=== PATIENT | female | born 1945 | race Caucasian/White ===

== ENCOUNTER 2024-06-02 12:27 | Emergency (ER) | payer MEDICARE, SELFPAY ==
[2024-06-02 12:42] VITALS: BP 134/82; PULSE 79; RESP 14; TEMP 36.6; O2SAT 96; BMI 36.1
--- NOTE | 2024-06-02 13:17 | ED.GENADULT ---
HPI - General Adult General Chief complaint: Abdominal Pain Stated complaint: Likely diverticulitis Time Seen by Provider: 06/02/24 12:42 History of Present Illness HPI narrative: This 78-year-old female was at urgent care earlier this week and had a CT scan which diagnosed diverticulitis. She has been taking Augmentin and states that the abdominal pain that characterize diverticulitis is completely gone but now in the last day or so she has developed some crampy pain with some diarrhea. She states that she felt much better initially after starting this medicine. She arrives here with normal vital signs. Related Data Home Medications ?Medication ?Instructions ?Recorded ?Confirmed amlodipine 5 mg tablet 5 mg PO DAILY 06/02/24 06/02/24 amoxicillin 875 mg-potassium 1 tab PO BID 06/02/24 06/02/24 clavulanate 125 mg tablet aspirin 81 mg capsule 81 mg PO DAILY 06/02/24 06/02/24 calcium carb-ergocalciferol (vit 1 tab PO DAILY 06/02/24 06/02/24 D2) 600 mg calcium-200 unit tablet ferrous sulfate 325 mg (65 mg 325 mg PO DAILY 06/02/24 06/02/24 iron) tablet (Feosol) furosemide 20 mg tablet 20 mg PO DAILY 06/02/24 06/02/24 ketoconazole 2 % shampoo 1 applic topical PRN 06/02/24 losartan 25 mg tablet 25 mg PO DAILY 06/02/24 06/02/24 pantoprazole 20 mg tablet,delayed 20 mg PO DAILY 06/02/24 06/02/24 release Allergies Allergy/AdvReac Type Severity Reaction Status Date / Time venom-wasp Allergy Severe Anaphylaxis Verified 06/02/24 12:41 amiodarone Allergy Unknown Dizziness Verified 06/02/24 12:41 clindamycin Allergy Unknown Verified 06/02/24 12:41 Sulfa (Sulfonamide Allergy Unknown Verified 06/02/24 12:41 Antibiotics) zoster vaccine live Allergy Unknown Verified 06/02/24 12:41 procaine Allergy Anaphylaxis Verified 06/02/24 12:41 levofloxacin (From Levaquin) AdvReac Verified 06/02/24 12:41 ondansetron AdvReac Dizziness Verified 06/02/24 12:41 Review of Systems Status of ROS: Reports: 10 or more systems reviewed and unremarkable except as noted in History and below Narrative: Constitutional: No fevers, no weight gain or loss. Eyes: No discharge. No vision changes. HENT: No congestion, no sore throat, no ear pain. Cardiovascular: No chest pain, no palpitations. Respiratory: No shortness of breath, no wheezes, no cough. Gastrointestinal: Some episodes of crampy abdominal pain and mild diarrhea. Genitourinary: No dysuria, no hematuria. Musculoskeletal: Normal range of motion. Skin: No rashes, no pruritis. Neurological: No dizziness, weakness, sensory change, speech change. Endo/Heme/Allergies: No bruising or bleeding. No polydipsia. Pysch: no suicidality, no anxiety, no insomnia. All other systems reviewed and are negative. PFSH PFS Social History Smoking Status: Never smoker How often do you have a drink containing alcohol: never AUDIT-C Alcohol total score: 0 Non-prescribed substance use: denies use Exam Narrative: Exam Narrative: Constitutional: Well-developed, well-nourished, no acute distress. HEENT: Normocephalic, atraumatic. Neck: Normal range of motion. Nontender. Supple. Heart: Regular. No murmurs. Normal rate. Intact distal pulses. Lungs: Clear to auscultation. No chest discomfort. No wheezes, rhonchi, or rales. Abdomen: Normal bowel sounds. Nontender. No rebound tenderness. Genitalia: Deferred. Back: No midline tenderness. Normal range of motion. Extremities: Normal range of motion. No injury. Skin: Intact. No rash. Warm. No erythema or pallor. Neurologic: No altered sensation. No weakness. Alert and oriented. Psychiatric: No suicidality. No anxiety or depression. No insomnia. Nursing notes and vitals signs are reviewed. Const: Vital Signs, click to edit/add: Vital Signs - 24 hr 06/02/24 12:42 Temperature 97.8 F Pulse Rate [Pulse Oximeter] 79 Respiratory Rate 14 Blood Pressure [Ri ght Upper Arm] 134/82 Pulse Oximetry 96 Oxygen Delivery Me thod Room Air Course Vital Signs Vital signs: Initial Vital Signs Temperature 97.8 F 06/02/24 12:42 Temperature Source Temporal Artery Scan 06/02/24 12:42 Pulse Rate 79 06/02/24 12:42 Pulse Rhythm Regular 06/02/24 12:42 Respiratory Rate 14 06/02/24 12:42 Blood Pressure 134/82 06/02/24 12:42 Blood Pressure Mean 99 06/02/24 12:42 Blood Pressure Position Sitting 06/02/24 12:42 Pulse Oximetry 96 06/02/24 12:42 Oxygen Delivery Method Room Air 06/02/24 12:42 Vital Signs Temperature 97.8 F 06/02/24 12:42 Pulse Rate 79 06/02/24 12:42 Respiratory Rate 14 06/02/24 12:42 Blood Pressure 134/82 06/02/24 12:42 Pulse Oximetry 96 06/02/24 12:42 Oxygen Delivery Method Room Air 06/02/24 12:42 Temperature 97.8 F 06/02/24 12:42 Pulse Rate 79 06/02/24 12:42 Respiratory Rate 14 06/02/24 12:42 Blood Pressure 134/82 06/02/24 12:42 Pulse Oximetry 96 06/02/24 12:42 Oxygen Delivery Method Room Air 06/02/24 12:42 Medical Decision Making MDM Narrative Medical decision making narrative: This patient has completed several days of Augmentin therapy to treat diverticulitis. Her symptoms completely resolved after few days but now she has developed some crampy pains and softer stools with mild diarrhea at times. Her exam is completely normal. Vital signs also are in normal range. It seems that her symptoms are more likely related to adverse effects of Augmentin which typify this scenario of her presentation. I did discuss repeating lab and imaging studies with her but indicated reassurance with normal exam and vital signs. I advised her to discontinue the Augmentin as studies are showing also now that antibiotic treatment for uncomplicated diverticulitis is not clearly beneficial. It seems that she did benefit but now is experiencing some adverse effects of the medicine. She was satisfied with this results and will proceed accordingly. Discharge Plan Discharge Clinical Impression: Diverticulitis Patient Disposition: Home, Self-Care Condition: Stable Additional Instructions: Discontinue Augmentin. Use [id number] medicines as needed and directed. Follow up with MD return if worsening. Prescriptions: No Action amlodipine 5 mg tablet 5 mg PO DAILY amoxicillin-pot clavulanate 875-125 mg tablet 1 tab PO BID aspirin 81 mg capsule 81 mg PO DAILY calcium carbonate-vitamin D2 600 mg calcium- 200 unit tablet 1 tab PO DAILY ferrous sulfate [Feosol] 325 mg (65 mg iron) tablet 325 mg PO DAILY furosemide 20 mg tablet 20 mg PO DAILY ketoconazole 2 % shampoo 1 applic topical PRN losartan 25 mg tablet 25 mg PO DAILY pantoprazole 20 mg tablet,delayed release (DR/EC) 20 mg PO DAILY Stand Alone Forms: [facility] Instructions
--- OUTSIDE RECORDS SUMMARY | 2024-06-02 13:27 | XMS_ITS | Clinical Summary ---
Author Organization [facility] Address [address] [place] [address] Care Team Providers Care Awake Overnight Monitor Name Role Phone Found, No Pcp MD Primary Care Provider Unavailab le Source Comments You are receiving this document as you are listed as the primary care provider,follow-up provider, or the patient has been referred to you for consultation.This is in compliance with the Medicare and[facility] E[facility] Incentive [facility],which states Providers who transition their patient to another setting of careor provider of care or refers their patient to another provider of care shouldprovide summary care record for each transition of care or referral. Libox Allergies Active Allergy Reactions Criticality Noted Date Comments Procaine 08/14/2008 PN: LW Reaction: Unknown Reaction Sulfa Antibiotics 08/12/2008 PN: LW Reaction: Rash, Generalized Medications DRUG NOT IN COMPUTER LW Comment:Vitamin E 400units 9 Active DRUG NOT IN COMPUTER LW Comment:Multivit marin 9 Active DRUG NOT IN COMPUTER LW Comment:Holabird 3 Fish oil 9 Active ferrous sulfate 325 (65 FE) MG tablet Take 1 tablet by mouth daily (every 24 hours). LW Addl Instr:Indicated for: Iron Deficiency Anemia 0 Active HYDROcodone-joi taminophen (NORCO) 5-325 MG tablet Take 1 Tab by mouth every 6 hours as needed. 20 Tab 0 6 Active Additional Information Patient not taking.Reported on 12/27/2019 predniSONE (DELTASONE) 50 MG tablet Take 1 Tab by mouth daily. 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 Overview (11/24/2016): LW Modifier: large with miguel angel's lesions ; Hernia Hiatal Iron deficiency anemia 03/26/2010 Overview (11/24/2016): Anemia Iron Deficiency Social History Tobacco Use Types Packs/Day Years Used Date Smoking Tobacco: Never Comments Unknown Sex and Gender Information Value Date Recorded Sex Assigned at Not on file Legal Sex Female 1:05 AM CDT Gender Identity Not on file Sexual Orientation Not on file Last Filed Vital Signs Vital Sign Reading Time Taken Comments Blood Pressure 142/85 12/27/2019 5:54 PM CDT Pulse 83 12/27/2019 5:53 PM CDT Temperature 36.9 C (98.5 F) 12/27/2019 5:53 PM CDT Respiratory Rate 18 12/27/2019 5:53 PM CDT Oxygen Saturation 98% 12/27/2019 5:53 PM CDT Inhaled Oxygen Concentration - - Weight 83 kg (183 lb) 12/27/2019 5:53 PM CDT Height 154.9 cm (5' 1) 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 Plan of Treatment Health Maintenance Due Date Last Done Comments Hep C Screening (Preventive Services) 1945 Zoster/Shingles (1 of 2) 09/18/1995 Dexa 2010 DTaP/Tdap/Td (1 - Tdap) 07/10/2014 07/09/2014 RSV (1 - 1-dose 75+ series) 2020 COVID-19 Vaccine (3 - 2023-2 5 season) 2023 06/14/2020, 05/24/2020 Influenza (#1) 2023 Medicare Annual Wellness Visit 04/04/2024 Pneumococcal 50+ Yrs Completed 12/03/2019, 07/09/2014 HepA Aged Out No longer eligi ble based on patient's age to complete this topic HepB Aged Out No longer eligi ble based on patient's age to complete this topic Hib Aged Out No longer eligi ble based on patient's age to complete this topic IPV (Polio) Aged Out No longer eligi ble based on patient's age to complete this topic MCV4 Aged Out No longer eligi ble based on patient's age to complete this topic Meningococcal B Aged Out No longer el igible based on patient's age to complete this topic Insurance [facility] MEDICARE Care Teams Awake Overnight Monitor Relationship Specialty Start Date End Date Found, No Pcp, [id number] [place] [address] PCP - General 08/11/17
--- OUTSIDE RECORDS SUMMARY | 2024-06-02 13:27 | XMS_ITS | Clinical Summary ---
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 Also on Eliquis. Clindamycin 08/18/2018 Other reaction(s): *Unknown - Pt Doesn't Remember All mycins Levofloxacin 05/06/2014 Ondansetron 12/03/2019 Other reaction(s): Dizziness Procaine Anaphylaxis High 08/14/2008 PN: LW Reaction: Unknown Reaction novacaine Sulfa Antibiotics 05/06/2014 Wasp Venom Protein Anaphylaxis High 04/06/2011 [place]et wasp sting Medications multivitamin, therapeutic (THERA-VIT) TABS Take 1 tablet by mouth daily Active albuterol (PROAIR HFA/PROVENTIL HFA/VENTOLIN HFA) 108 (90 Base) MCG/ACT inhaler Inhale 2 puffs into the lungs every 6 hours as needed for shortness of breath / dyspnea or wheezing 8 g 1 Active Social History Tobacco Use Types Packs/Day Years Used Date Smoking Tobacco: Never Assessed Adolescent Education Answer Date Record ed Getting School Help Needed Not on file 01/02 Comments Unknown Sex and Gender Information Value Date Recorded Sex Assigned at Not on file 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 Gender Identity Not on file Sexual Orientation Not on file Last Filed Vital Signs Vital Sign Reading Time Taken Comments Blood Pressure 150/86 08/03/2020 12:00 PM CDT Pulse 57 08/03/2020 1:00 PM CDT Temperature 36.4 C (97.5 F) 08/03/2020 9:56 AM CDT Respiratory Rate 18 08/03/2020 12:30 PM CDT Oxygen Saturation 92% 08/03/2020 1:15 PM CDT Inhaled Oxygen Concentration - - Weight 87 kg (191 lb 12.8 oz) 08/03/2020 9:56 AM CDT Height 152.4 cm (5') 08/03/2020 9:56 AM CDT Body Mass Index 37.46 08/03/2020 9:56 AM CDT Plan of Treatment Not on file Insurance [employer] MEDICARE Care Teams Edge Banding Machine Offbearer Relationship Specialty Start Date End Date [facility], [facility] [address] [place] [address] PCP - General 05/06/14
--- OUTSIDE RECORDS SUMMARY | 2024-06-02 13:27 | XMS_ITS | Clinical Summary ---
Author Organization [facility] Address [address] [place] [id number] Care Team Providers Care Abrading Machine Tender Name Role Phone Ken Land MD Unavailable Zuri Sanchez MD Primary Care Provider [phone] Allergies Active Allergy Reactions Criticality Noted Date Comments Amiodarone Dizziness High 06/11/2019 Clindamycin *Unknown - Pt Doesn' t Remember 08/18/2018 All mycins Flu Vac 2015 (65 Up)-Mf59c(Pf) *Unknown 06/22/2022 Levofloxacin *None-Radiology Only 04/06/2011 Has side effects on the medication Procaine Anaphylaxis High 04/06/2011 novacaine Sulfa (Sulfonamide Antibiotics) *Unknown - Pt Doesn't Remember 02/29/2012 Venom-Wasp Anaphylaxis High 04/06/2011 Yellow Jacket wasp sting Ondansetron Dizziness 12/03/2019 Zoster Vaccine Live *Unknown 06/22/2022 Medications ascorbic acid (VITAMIN C) 1,000 mg tablet Take 1 tablet by mouth once daily. 0 04/06/19 12 Active MAGNESIUM HYDROXIDE (MAGNESIA ORAL) Take 1 tablet by mouth once daily. Unknown dose Active ferrous sulfate, 65 mg elemental, tablet Take 1 Tab by mouth once daily. 03/20/20 10 Active APPLE CIDER VINEGAR ORAL Take 450 mg by mouth once daily. Active aspirin (ECOTRIN) 81 mg enteric coated tabletIndication s:PAF (paroxysmal atrial fibrillation) (HC) Take 1 Tablet (81 mg) by mouth once daily with a meal. 1 Tablet 08/13/19 21 Active COQ10, UBIQUINOL, ORAL Take by mouth once daily if needed. Patient reports taking small amount of liquid formulation (half medicine cup) daily Active acetaminophen (TYLENOL EXTRA STRGTH) 500 mg tablet Take 500 mg by mouth every 6 hours if needed. Max acetaminophen dose: 4000mg in 24 hrs. Active calcium with vitamin D3 (calcium 500 mg-vitamin d 200 units) tablet Take 1 Tablet by mouth once daily with a meal. Active Blood Pressure Monitor KitIndications:H TN (hypertension) Frequency of testing: twice daily 1 Each 09/25/19 23 Active furosemide (LASIX) 20 mg tabletIndication s:HTN (hypertension) Take 1 Tablet (20 mg) by mouth once every other day. taking 1 tablet every other day 45 Tablet 1 11/10/19 23 Active Additional Information Patient taking differently:20 mg Oral EVERY OTHER DAY, taking 1 tablet every other day.taking only when needed, Reported on 05/30/2024 hydrocortisone 2.5% creamIndications :Seborrheic dermatitis Apply topically to affected area(s) two times daily. for itching and scaling in the ears as needed. 28 g 3 12/01/19 23 Active turmeric 400 mg cap 09/13/19 24 Active amLODIPine (NORVASC) 5 mg tabletIndication s:Essential hypertension Take 1 Tablet (5 mg) by mouth once daily. 90 Tablet 1 01/31/20 24 Active losartan (COZAAR) 25 mg tabletIndication s:Essential hypertension Take 1 Tablet (25 mg) by mouth once daily. 90 Tablet 1 01/31/20 24 Active CPAPIndications: Obstructive sleep apnea RESMED CPAP (E0601) machine for home use at pressure: 10 cmw, Choice of mask (A7030 or A7034) w/full face cushion (A7031) x1/mo, nasal cushion (A7032) x2/mo, or nasal pillows (A7033) x 2/mo; Length of Need: 99 months; Frequency of use: Daily 1 Each 11 03/19/20 24 Active pantoprazole (PROTONIX) 20 mg tabletIndication s:Chronic GERD Take 1 Tablet (20 mg) by mouth once daily. 30 Tablet 04/03/20 24 Active polyethylene glycol (MIRALAX; GLYCOLAX) 17 g per packet packetIndication s:Chronic constipation Mix 17 g (1 Packet) in liquid then take by mouth once daily if needed for Constipation (Constipation). 10 Packet 04/03/20 24 Active ketoconazole 2% shampoo (NIZORAL) 2 % shampooIndicatio ns:Seborrheic dermatitis Apply topically to affected area(s) once weekly. Lather on damp scalp and ears, leave on for 5 minutes, then rinse with water. 360 mL 2 04/25/19 25 Active amoxicillin-clav ulanate (AUGMENTIN) 875-125 mg tabletIndication s:Diverticulitis Take 1 Tablet by mouth two times daily with meals. 20 Tablet 05/30/2024 3:51 PM PARKING CONTROL OFFICER 05/30/19 25 Active Active Problems Patient Care Coordination No te Formatting of this note migh t be different from the original. HF/Structural/Prevention Research Eligibility Review Date: 06/08/19 Upcoming Visit Location: Outreach Age: 73 y.o. Research Purpose Insurance Type: Private Medicare Equivalent Comments: This patient was indicated to be a potential candidate and pre-screened for the following studies: Spyral: Potential Vesalius: no dt STEMI Problem Noted Date Diagnosed Date Tinnitus 08/04/2023 Prediabetes 08/04/2023 Dyslipidemia 08/04/2023 Poor dentition 08/04/2023 Regular astigmatism of left eye 07/14/2023 Heart failure with preserved ejection fraction 0 06/22/2022 Overview (08/04/2023): prn lasix by cards DDD (degenerative disc disease), lumbar 02/23/20 22 Overview (08/04/2023): Sports med and accupuncture for low back pain Adrenal nodule 06/15/2021 Overview (06/15/2021): Stable on 06/2021 CT. Not active Mitral valve regurgitation 06/04/2021 SOB (shortness of breath) 10/08/2020 Overview (08/04/2023): at baseline, no O2 Severe obesity (BMI 35.0-39.9) with comorbidity 12/05/2019 Presbyopia 12/03/2019 Vegan diet 06/12/2019 Essential hypertension 05/09/2019 Overview (08/04/2023): losartan and amlodipine ASHD (arteriosclerotic heart disease) 05/08/2019 Overview (05/08/2019): Mild CAD on angiogram 05/07/19 Bilateral pseudophakia 07/27/2016 Osteoporosis 07/09/2014 Overview (06/22/2022): On 2nd round of bisphosphonate as of 2019 ONI 03/31/2014 AHI-24 12/11/2019 AHI-15 5 Overview (08/04/2023): on cpap ACP (advance care planning) 10/25/2011 Overview (10/25/2011): Patient has identified Health Care Agent(s): Yes Add Health Care Agents: Yes Health Care Agent(s): Primary Health Care Agent: Shiv Nichols Relationship: friend [phone] Cell Secondary Health Care Agent:Angie Abraham Relationship: friend Per [facility] Kathe Jacob may not be involved in decision making. Patient has Advance Care Plan Documents (Health Care Directive, POLST): Yes Advance Care Plan Documents: Health Care Directive Patient has identified Specific Treatment Preferences: Yes Specific Treatment Preferences: a.) Code Status: CPR/Attempt Resuscitation b.) Goals of Treatment: Limited Interventions and treat reversible conditions. Provide interventions aimed at treatment of new or reversible illness/injury or non-life threatening chronic conditions. Duration of invasive or uncomfortable interventions should generally be limited. Tricuspid valve regurgitation 04/06/2011 Overview (08/04/2023): 2011 Echocardiogram showed mild to moderate tricuspid regurgitation. followed by cards Hiatal hernia 04/06/2011 Persistent atrial fibrillation Presence of Watchman left atrial appendage closu re device Resolved Problems Problem Noted Date Diagnosed Date Resolved Date HTN (hypertension) 11/22/2022 Depression, recurrent 07/30/20222023 Spinal stenosis 02/22/2022 06/22/2022 Carpal tunnel syndrome of right wrist 02/22/2022 06/22/2022 Depression, recurrent 06/15/20212021 Acute diverticulitis 06/08/2021 023 Diverticulitis 06/04/2021 06/22/2022 Pyuria 06/04/2021 06/22/2022 Mitral valve insufficiency 05/26/2021 0 06/22/2022 Acute systolic congestive heart failure 09/04/2020 06/22/2022 Anticoagulation goal of INR 2 to 3 07/08/2020 07/08/2020 Anticoagulation monitoring, INR range 2-3 07/08/2020 08/13/2020 GI bleeding 06/19/2020 06/22/2022 Paroxysmal atrial fibrillation 12/22/2019 12/09/2020 Atrial fibrillation, unspecified type 12/17/2019 12/22/2019 Anticoagulation monitoring, INR range 2-3 12/17/2019 04/09/2020 Aspirin intolerance 12/01/2019 06/23/19 23 Overview (12/01/2019): On Eliquis. Had GI bleed with coffee ground emesis 2019 Paroxysmal atrial fibrillation 06/12/2019 06/13/2020 Gastric outlet obstruction 05/03/2019 0 06/22/2022 Helicobacter pylori (H. pylori) 02/21/2012 06/22/2022 CHARLENE (iron deficiency anemia) 04/06/2011 08/04/2023 Acute diastolic heart failure 06/22/2022 Encounters Date Type Department Care Team Description 05/30/2024 3:00 PM PARKING CONTROL OFFICER Ancillary Procedure [facility] [address] [place] [phone] Arrived 05/30/2024 12:30 PM PARKING CONTROL OFFICER Office Visit [facility] [place] [address] [place] [phone] Lyssa Desir DO Abdominal Pain (started Tuesday) 05/30/2024 Travel 04/23/2024 Refill [facility] [address] [place] [phone] Estrada Kirby MD Refill Request (ketoconazole 2% shampoo (NIZORAL) 2 % shampoo ) 04/23/[address] [phone] Zuri Sanchez MD Error-please disregard 04/03/2024 3:30 PM PARKING CONTROL OFFICER Ancillary Procedure [address] [phone] 04/03/2024 2:05 PM PARKING CONTROL OFFICER Ancillary Procedure [address] [phone] 04/03/2024 1:40 PM PARKING CONTROL OFFICER Orders Only [address] [phone] Lab, Appv Lab 04/03/2024 1:20 PM PARKING CONTROL OFFICER Office Visit [address] [phone] Estrada Kirby MD Pain (C/O pain in left inner calf and lower back radiating down right hip.); Abdominal Pain (C/O abdominal pain, X 6 weeks ); Medication Management (Refill needed on ketoconazole 2% shampoo (NIZORAL) 2 % shampoo) 04/03/2024 12:40 PM PARKING CONTROL OFFICER Ancillary Procedure [address] [phone] 04/03/2024 12:35 PM PARKING CONTROL OFFICER Ancillary Procedure [address] [phone] 04/03/2024 Travel 03/19/2024 2:00 PM PARKING CONTROL OFFICER Office Visit [facility] [address] [place] [address] Ken Land MD Sleep Follow-up 03/19/2024 Travel from Last 3 Months Immunizations Name Administration Dates Next Due COVID-19 vaccine ([employer] NTCloudyn 30mcg/0.3mL) 12YO+ LEIGH ANN-SUCROSE PF, MDV 08/13/2021 COVID-19 vaccine ([employer] NTech 30mcg/0.3mL) PF, MDV 01/21/2021,06/14/2020,05/24/2020 Pneumococcal Poly,23-Valent (Pneumovax) 12/03/19 20 Pneumococcal conj 13-Valent (Prevnar 13) 015 Td, Preservative Free (age >= 7 Years) 5 Tdap 06/24/2022 Family History Medical History Relation Name Comments Heart Disease Father Other Mother dementia/retina l detachment Anesthesia Problem No Family History Cancer-breast No Family History Cancer-ovarian No Family History Relation Name Status Comments Father Maternal Grandfather Maternal Grandmother Mother Paternal Grandfather Paternal Grandmother Social History Tobacco Use Types Packs/Day Years Used Date Smoking Tobacco: Passive Smo ke Exposure - Never Smoker Smokeless Tobacco: Never Tobacco Cessation:Counseling Given: Yes Alcohol Use Standard Drinks/Week Comments Not Currently 0 (1 standard drink = 0.6 oz pur e alcohol) PHQ-2 Answer Date Recorded PHQ-2 TOTAL SCORE 1 08/04/2023 Social Connections Answer Date Recorded Do you often feel lonely or isolated from those around you? 0 08/04/2023 Financial Resource Strain Answer Date R ecorded Difficulty of Paying Living Expenses 3 08/04/2023 Difficulty of Paying Living Expenses Not on file 08/04/2023 Food Insecurity Answer Date Recorded Do you worry your food will run out before you are able to buy more? 2 08/04/2023 Transportation Needs Answer Date Record ed Does lack of transportation keep you from medica l appointments? 1 08/04/2023 Does lack of transportation keep you from work, meetings or getting things that you need? 1 08/04/2023 Housing Stability Answer Date Recorded What is your housing situation today? 1 08/04/2023 Interpersonal Safety Answer Date Record ed Are you being hit, kicked, p ushed or yelled at (see row info)? No 06/11/2023 Interpersonal Safety Abuse 12 - 18 Not on file 06/11/2023 Interpersonal Safety Ambulatory Vulnerability No t on file 06/11/2023 Utilities Answer Date Recorded Do you have trouble paying f or utilities (for example, heat, electricity, water, phone)? 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 Not on file Not on file Not on file Obstetrics History Para Term AB IAB SAB Ectopic Multiple Livin g Live Births 1 1 1 1 Date Outcome GA Total Labor Labor/2nd/3rd Weight Sex Type Anes PTL Leelee A1 A5 Name Clin Term Last Filed Vital Signs Vital Sign Reading Time Taken Comments Blood Pressure 157/77 05/30/2024 1:12 PM PARKING CONTROL OFFICER Pulse 86 05/30/2024 1:12 PM PARKING CONTROL OFFICER Temperature 36.7 C (98 F) 05/30/2024 1:12 PM PARKING CONTROL OFFICER Respiratory Rate 20 05/30/2024 1:12 PM PARKING CONTROL OFFICER Oxygen Saturation 96% 05/30/2024 1:12 PM PARKING CONTROL OFFICER Inhaled Oxygen Concentration - - Weight 89.1 kg (196 lb 6.4 oz) 04/03/2024 11:58 AM PARKING CONTROL OFFICER Height 154.9 cm (5' 1) 03/19/2024 1:52 PM PARKING CONTROL OFFICER Body Mass Index 37.11 03/19/2024 1:52 PM PARKING CONTROL OFFICER Plan of Treatment Health Maintenance Due Date Last Done Comments Zoster (shingles) series for age 50+ (1 of 2) 09/18/1995 RSV vaccine for adults or (1 - 1-dose 75+ series) 2020 Influenza for age 65+ 12/04/2023 Depression screening for age 12+ 08/04/2024 08/05/2023, 08/04/2023, 08/03/2023, Additional history exists Medicare Wellness for age 65+ 08/04/2024, 06/22/2022, 06/15/2021, Additional history exists BMI (ht and wt on same day) for age 18+ 03/19/2025 03/19/2024, 02/07/2024, 01/31/2024, Additional history exists Tetanus booster 06/24/2032 06/24/2022, 07/09/2014 Hepatitis C screening for ag e 18-79 Completed 12/20/2017 Pneumococcal series for age 50+ Completed 0, 07/09/2014 Tdap Completed 06/24/2022 DEXA/DXA scan for age 65+ Completed 2022, 01/01/2020, 07/30/2014, Additional history exists COVID-19 vaccine series Completed 12/21/19, 01/17/2023, 12/14/2021, Additional history exists Medical Devices Implanted Type Area Sales Operations Lead Device Identifier Shelf Expiration Date Model / Serial / Lot Iol Woodward +24.5 Otilio [id number] - [id number] Implanted:Qty: 1 on 07/12/2016 by Jesus White MD at [facility] Left: [employer] 05/15/2020 ZCB00# / [id number] / Iol Woodward +24 Tecangel Zalexandra00 - [id number] Implanted:Qty: 1 on 07/26/2016 by Jesus White MD at [facility] Right: [employer] 12/02/2019 ZCB00# / [id number] / Procedures Procedure Name Priority Date/Time Associated Diagnosis Comments CT ABDOMEN PELVIS W STAT 05/30/2024 2:45 PM PARKING CONTROL OFFICER Abdominal pain, generalized ND BLOOD COUNT COMPLETE AUTO&AUTO DIFRNTL WBC STAT 05/30/2024 1:47 PM PARKING CONTROL OFFICER Abdominal pain, generalized ISTAT CHEM 8 STAT 05/30/2024 1:47 PM PARKING CONTROL OFFICER Abdominal pain, generalized UA W/ SEDIMENT EXAM REFLEXED PER CRITERIA STAT 05/30/2024 1:47 PM PARKING CONTROL OFFICER Abdominal pain, generalized CT ABDOMEN PELVIS W Today 04/03/2024 2:46 PM PARKING CONTROL OFFICER Abdominal pain, generalized US VENOUS LOWER EXTREMITY LIMITED LEFT Today 04/03/2024 2:27 PM PARKING CONTROL OFFICER Left leg pain ND BLOOD COUNT COMPLETE AUTO&AUTO DIFRNTL WBC Routine 04/03/2024 1:52 PM PARKING CONTROL OFFICER Abdominal pain, generalized COMP METABOLIC PANEL Routine 04/03/2024 1:52 PM PARKING CONTROL OFFICER Abdominal pain, generalized CREATININE,ISTAT Routine 04/03/2024 1:51 PM PARKING CONTROL OFFICER Abdominal pain, generalized XR SPINE LUMBAR 3 VIEWS Routine 04/03/2024 12:47 PM PARKING CONTROL OFFICER Chronic midline low back pain with right-sided sciatica XR ABDOMEN 1 VIEW Routine 04/03/2024 12: 44 PM PARKING CONTROL OFFICER Abdominal pain, generalized XR DXA BONE DENSITY 2 SITES AXIAL Routine 07/26/2022 1:10 PM CDT Age-related osteoporosis without current pathological fracture ANTI HCV Routine 12/20/2017 9:54 AM CDT Need for hepatitis C screening test from Last 3 Months or Most Recently Relevant to Health Maintenance Results * CT ABDOMEN PELVIS W (05/30/2024 2:45 PM PARKING CONTROL OFFICER) Only the most recent of2 resultswithin the time period is included. Anatomical Region Laterality Modality Abdomen, Pelvis, AORTA, LIVER, SPLEEN Computed Tomography 05/30/2024 2:45 PM PARKING CONTROL OFFICER Impressions 05/30/2024 2:51 PM PARKING CONTROL OFFICER Mild acute diverticulitis proximal ascending colon. No evidence of perforation or abscess. Narrative 05/30/2024 2:51 PM PARKING CONTROL OFFICER For Patients: As a result of the Century Cures Act, medical imaging exams and procedure reports are released immediately into your electronic medical record. You may view this report before your referring provider. If you have questions, please contact your health care provider. EXAM: CT ABDOMEN PELVIS W LOCATION: [facility] DATE: 05/30/2024 INDICATION: Abdominal Pain, Generalized COMPARISON: CT abdomen pelvis 04/03/2024 TECHNIQUE: CT scan of the abdomen and pelvis was performed following injection of IV contrast. Multiplanar reformats were obtained. Dose reduction techniques were used. CONTRAST: 100 mL Omnipaque 350 FINDINGS: LOWER CHEST: Mild linear scarring or atelectasis in the lower lungs. Cardiac pacemaker leads. Cardiac enlargement. HEPATOBILIARY: Benign liver cysts. Normal gallbladder. PANCREAS: Normal. SPLEEN: Normal. ADRENAL GLANDS: Stable benign low-attenuation thickening both adrenal glands. KIDNEYS/BLADDER: Few scattered tiny benign cysts, no follow-up needed. No urinary stone or hydronephrosis. BOWEL: Marked sigmoid colonic diverticulosis, moderate scattered elsewhere. Mild focal mural thickening and mild adjacent inflammatory changes have developed involving the proximal ascending colon centered about an inflamed diverticulum (series 2, image 85), consistent with mild acute diverticulitis. No evidence of perforation including no free air. No abscess. No evidence of bowel obstruction. Normal appendix. LYMPH NODES: Normal. VASCULATURE: Mild atherosclerotic calcifications. Normal caliber abdominal aorta. PELVIC ORGANS: Normal. MUSCULOSKELETAL: Mild scattered degenerative changes in the spine. Procedure Note Kanu Vines MD - 05/30/2024 For Patients: As a result of the Cures Act, medical imagingexams and procedure reports are released immediately into your electronicmedical record. You may view this report before your referring provider.If you have questions, please contact your health care provider. EXAM: CT ABDOMEN PELVIS W LOCATION: [facility] DATE: 05/30/2024 INDICATION: Abdominal Pain, Generalized COMPARISON: CT abdomen pelvis 04/03/2024 TECHNIQUE: CT scan of the abdomen and pelvis was performed followinginjection of IV contrast. Multiplanar reformats were obtained. Dosereduction techniques were used. CONTRAST: 100 mL Omnipaque 350 FINDINGS: LOWER CHEST: Mild linear scarring or atelectasis in the lower lungs.Cardiac pacemaker leads. Cardiac enlargement. HEPATOBILIARY: Benign liver cysts. Normal gallbladder. PANCREAS: Normal. SPLEEN: Normal. ADRENAL GLANDS: Stable benign low-attenuation thickening both adrenalglands. KIDNEYS/BLADDER: Few scattered tiny benign cysts, no follow-up needed. Nourinary stone or hydronephrosis. BOWEL: Marked sigmoid colonic diverticulosis, moderate scatteredelsewhere. Mild focal mural thickening and mild adjacent inflammatorychanges have developed involving the proximal ascending colon centeredabout an inflamed diverticulum (series 2, image 85), consistent with mildacute diverticulitis. No evidence of perforation including no free air. Noabscess. No evidence of bowel obstruction. Normal appendix. LYMPH NODES: Normal. VASCULATURE: Mild atherosclerotic calcifications. Normal caliber abdominalaorta. PELVIC ORGANS: Normal. MUSCULOSKELETAL: Mild scattered degenerative changes in the spine. IMPRESSION: Mild acute diverticulitis proximal ascending colon. No evidence ofperforation or abscess. Lyssa Desir DO CT Fin al Result * (ABNORMAL) ISTAT CHEM 8 BMP (05/30/2024 1:47 PM PARKING CONTROL OFFICER) POCT, SODIUM, ISTAT 140 138 - 146 mmol/L [facility] (U POCT, POTASSIUM, ISTAT 4.0 3.5 - 4.9 mmol/L [facility] (U POCT, CHLORIDE, ISTAT 105 98 - 109 mmol/L [facility] (U POCT, CARBON DIOXIDE, ISTAT 22(L) 24 - 29 mmol/L [facility] (U POCT, GLUCOSE ISTAT 103 70 - 105 mg/dL [facility] (U POCT, UREA NITROGEN (BUN) ISTAT 6(L) 8 - 26 mg/dL [facility] (U POCT,CREATININE , ISTAT 0.7 0.6 - 1.3 mg/dL [facility] (U POCT, CALCIUM, IONIZED, ISTAT 4.6 4.5 - 5.3 mg/dL [facility] (U Blood BLOOD SPECIMEN / Unknown 05/30/2024 1:47 PM PARKING CONTROL OFFICER 05/30/2024 1:48 PM PARKING CONTROL OFFICER Lyssa Desir DO CHEMISTRY Fin al Result [facility] [address] [place] [address], [facility] (U [address] [place] [phone] * (ABNORMAL) UA W/ SEDIMENT EXAM REFLEXED PER CRITERIA [95013.2] (05/30/2024 1:47 PM PARKING CONTROL OFFICER) COLOR YELLOW YELLOW [facility] (U APPEARANCE CLEAR CLEAR [facility] (U SPECIFIC GRAVITY 1.020 1.001 - 1.035 [facility] (U PH 6.5 5.0 - 8.0 [facility] (U GLUCOSE NEGATIVE NEGATIVE [facility] (U BILIRUBIN NEGATIVE NEGATIVE [facility] (U KETONES TRACE(A) NEGATIVE [facility] (U OCCULT BLOOD NEGATIVE NEGATIVE [facility] (U PROTEIN TRACE(A) NEGATIVE [facility] (U NITRITE POSITIVE(A) NEGATIVE [facility] (U LEUKOCYTE ESTERASE 1+(A) NEGATIVE [facility] (U WBC UA 10-20(A) < OR = 5 /HPF [facility] (U RBC UA NONE SEEN < OR = 2 /HPF [facility] (U SQUAMOUS EPITHELIAL CELLS UA 6-10(A) < OR = 5 /HPF [facility] (U BACTERIA UA MANY(A) NONE SEEN /HPF [facility] (U NOTE UA [facility] (U Comment: This urine was analyzed for the presence of WBC, RBC, bacteria, casts, and other formed elements. Only those elements seen were reported. Urine URINE SPECIMEN / Unknown 05/30/2024 1:47 PM PARKING CONTROL OFFICER 05/30/2024 1:48 PM PARKING CONTROL OFFICER us Lyssa Desir DO URINE Fin al Result [facility] [address] [place] [address], [facility] (U [address] [place] [address] * (ABNORMAL) IN CLINIC CBC and Differential (05/30/2024 1:47 PM PARKING CONTROL OFFICER) Only the most recent of2 resultswithin the time period is included. WHITE BLOOD CELL COUNT 10.8 3.8 - 10.8 Thousand/u L [facility] (U RED BLOOD CELL COUNT 4.53 3.80 - 5.10 Million/uL [facility] (U HEMOGLOBIN 14.4 11.7 - 15.5 g/dL [facility] (U HEMATOCRIT 43.6 35.0 - 45.0 % [facility] (U MCV 96.2 80.0 - 100.0 fL [facility] (U MCH 31.8 27.0 - 33.0 pg [facility] (U MCHC 33.0 32.0 - 36.0 g/dL [facility] (U Comment: For adults, a slight decrease in the calculated MCHC value (in the range of 30 to 32 g/dL) is most likely not clinically significant; however, it should be interpreted with caution in correlation with other red cell parameters and the patient's clinical condition. RDW 13.2 11.0 - 15.0 % [facility] (U PLATELET COUNT 272 140 - 400 Thousand/u L [facility] (U MPV 10.1 7.5 - 12.5 fL [facility] (U ABSOLUTE NEUTROPHILS 7,862(H) 1,500 - 7,800 cells/uL [facility] (U ABSOLUTE LYMPHOCYTES 1,663 850 - 3,900 cells/uL [facility] (U ABSOLUTE MONOCYTES 994(H) 200 - 950 cells/uL [facility] (U ABSOLUTE EOSINOPHILS 227 15 - 500 cells/uL [facility] (U ABSOLUTE BASOPHILS 54 0 - 200 cells/uL [facility] (U NEUTROPHILS 72.8 % [facility] (U LYMPHOCYTES 15.4 % [facility] (U MONOCYTES 9.2 % [facility] (U EOSINOPHILS 2.1 % [facility] (U BASOPHILS 0.5 % [facility] (U Blood BLOOD SPECIMEN / Unknown 05/30/2024 1:47 PM PARKING CONTROL OFFICER 05/30/2024 1:48 PM PARKING CONTROL OFFICER us Lyssa Desir DO HEMATOLOGY Fin al Result [facility] [address] [place] [address], [facility] (U [address] [place] [address] * US VENOUS LOWER EXTREMITY LIMITED LEFT (04/03/2024 2:27 PM PARKING CONTROL OFFICER) Anatomical Region Laterality Modality ARM L Ultrasound 04/03/2024 2:27 PM PARKING CONTROL OFFICER Impressions 04/03/2024 3:58 PM PARKING CONTROL OFFICER 1. No deep venous thrombosis in the left lower extremity. Narrative 04/03/2024 3:58 PM PARKING CONTROL OFFICER For Patients: As a result of the Cures Act, medical imaging exams and procedure reports are released immediately into your electronic medical record. You may view this report before your referring provider. If you have questions, please contact your health care provider. EXAM: US VENOUS LOWER EXTREMITY LIMITED LEFT LOCATION: [facility] DATE: 04/03/2024 INDICATION: Left Leg Pain COMPARISON: None. TECHNIQUE: Venous Duplex ultrasound of the left lower extremity with and without compression, augmentation and duplex. Color flow and spectral Doppler with waveform analysis performed. FINDINGS: Exam includes the common femoral, femoral, popliteal, and contralateral common femoral veins as well as segmentally visualized deep calf veins and greater saphenous vein. LEFT: No deep vein thrombosis. No superficial thrombophlebitis. No popliteal cyst. Procedure Note Johnny Wolf MD - 04/03/2024 For Patients: As a result of the Cures Act, medical imagingexams and procedure reports are released immediately into your electronicmedical record. You may view this report before your referring provider.If you have questions, please contact your health care provider. EXAM: US VENOUS LOWER EXTREMITY LIMITED LEFT LOCATION: [facility] DATE: 04/03/2024 INDICATION: Left Leg Pain COMPARISON: None. TECHNIQUE: Venous Duplex ultrasound of the left lower extremity with andwithout compression, augmentation and duplex. Color flow and spectralDoppler with waveform analysis performed. FINDINGS: Exam includes the common femoral, femoral, popliteal, andcontralateral common femoral veins as well as segmentally visualized deepcalf veins and greater saphenous vein. LEFT: No deep vein thrombosis. No superficial thrombophlebitis. Nopopliteal cyst. IMPRESSION: 1. No deep venous thrombosis in the left lower extremity. us Estrada Kirby MD Final R esult * (ABNORMAL) COMP METABOLIC PANEL (04/03/2024 1:52 PM PARKING CONTROL OFFICER) GLUCOSE 89 65 - 99 mg/dL [facility] Comment: Fasting reference interval UREA NITROGEN (BUN) 10 7 - 25 mg/dL [facility] CREATININE 0.60 0.60 - 1.00 mg/dL [facility] EGFR 92 > OR = 60 mL/min/1. 73m2 [facility] BUN/CREATININE RATIO SEE NOTE: 6 - 22 (calc) [facility] Comment: Not Reported: BUN and Creatinine are within reference range. SODIUM 141 135 - 146 mmol/L [facility] POTASSIUM 4.8 3.5 - 5.3 mmol/L [facility] CHLORIDE 107 98 - 110 mmol/L [facility] CARBON DIOXIDE 24 20 - 32 mmol/L [facility] CALCIUM 10.0 8.6 - 10.4 mg/dL [facility] PROTEIN, TOTAL 7.0 6.1 - 8.1 g/dL [facility] ALBUMIN 4.3 3.6 - 5.1 g/dL [facility] GLOBULIN 2.7 1.9 - 3.7 g/dL (calc) [facility] ALBUMIN/GLOBULIN RATIO 1.6 1.0 - 2.5 (calc) [facility] BILIRUBIN, TOTAL 1.3(H) 0.2 - 1.2 mg/dL [facility] ALKALINE PHOSPHATASE 76 37 - 153 U/L [facility] AST 19 10 - 35 U/L [facility] ALT 19 6 - 29 U/L [facility] Blood BLOOD SPECIMEN / Unknown 04/03/2024 1:52 PM PARKING CONTROL OFFICER 04/03/2024 1:52 PM PARKING CONTROL OFFICER Estrada Kirby MD CHEMISTRY Final R esult [facility] [address] [address], [facility] [address] * CREATININE,ISTAT (04/03/2024 1:51 PM PARKING CONTROL OFFICER) Pathologist [facility] POCT,CREATININE , ISTAT 0.8 0.6 - 1.3 mg/dL [facility] (U Blood BLOOD SPECIMEN / Unknown 04/03/2024 1:51 PM PARKING CONTROL OFFICER 04/03/2024 1:51 PM PARKING CONTROL OFFICER Estrada Kirby MD CHEMISTRY Final R esult Performing Organization Address City/[facility]/ZIP Co de Phone Number [facility] [address] [place] [address], [facility] (U [address] [place] [address] * XR SPINE LUMBAR 3 VIEWS (04/03/2024 12:47 PM PARKING CONTROL OFFICER) Anatomical Region Laterality Modality LUMBAR SPINE Computed Radiogr aphy 04/03/2024 12:4 7 PM PARKING CONTROL OFFICER Impressions 04/03/2024 7:26 PM PARKING CONTROL OFFICER Straightening of usual lumbar lordosis with slight anterolisthesis of L4 over L5. No acute fracture. Scattered degenerative change including severe disc height loss at L5-S1. Partially visualized is chest implantable cardiac device. Pelvic phleboliths. Narrative 04/03/2024 7:26 PM PARKING CONTROL OFFICER For Patients: As a result of the Cures Act, medical imaging exams and procedure reports are released immediately into your electronic medical record. You may view this report before your referring provider. If you have questions, please contact your health care provider. EXAM: XR SPINE LUMBAR 3 VIEWS LOCATION: [facility] DATE: 04/03/2024 INDICATION: Low back pain with right sciatica COMPARISON: None available at time dictation. Procedure Note Kuldip Echevarria MD - 04/03/2024 For Patients: As a result of the s Act, medical imagingexams and procedure reports are released immediately into your electronicmedical record. You may view this report before your referring provider.If you have questions, please contact your health care provider. EXAM: XR SPINE LUMBAR 3 VIEWS LOCATION: [facility] DATE: 04/03/2024 INDICATION: Low back pain with right sciatica COMPARISON: None available at time dictation. IMPRESSION: Straightening of usual lumbar lordosis with slight anterolisthesis of L4over L5. No acute fracture. Scattered degenerative change including severedisc height loss at L5-S1. Partially visualized is chest implantablecardiac device. Pelvic phleboliths. us Estrada Kirby MD GENERAL IMAGING Final R esult * XR ABDOMEN 1 VIEW (04/03/2024 12:44 PM PARKING CONTROL OFFICER) Anatomical Region Laterality Modality Abdomen Computed Radiogr aphy 04/03/2024 12:4 4 PM PARKING CONTROL OFFICER Impressions 04/03/2024 2:26 PM PARKING CONTROL OFFICER Large amount stool throughout the colon. No small bowel dilatation. No abnormal abdominal calcifications. Pelvic phleboliths. Marked degenerative disc changes in the thoracic and lumbar spine. Narrative 04/03/2024 2:26 PM PARKING CONTROL OFFICER For Patients: As a result of the Cures Act, medical imaging exams and procedure reports are released immediately into your electronic medical record. You may view this report before your referring provider. If you have questions, please contact your health care provider. EXAM: XR ABDOMEN 1 VIEW LOCATION: [facility] DATE: 04/03/2024 INDICATION: Abdominal Pain, Generalized COMPARISON: 05/03/2019 Procedure Note Parker Guerrero MD - 04/03/2024 For Patients: As a result of the Cures Act, medical imagingexams and procedure reports are released immediately into your electronicmedical record. You may view this report before your referring provider.If you have questions, please contact your health care provider. EXAM: XR ABDOMEN 1 VIEW LOCATION: [facility] DATE: 04/03/2024 INDICATION: Abdominal Pain, Generalized COMPARISON: 05/03/2019 IMPRESSION: Large amount stool throughout the colon. No small bowel dilatation. Noabnormal abdominal calcifications. Pelvic phleboliths. Marked degenerativedisc changes in the thoracic and lumbar spine. us Estrada Kirby MD GENERAL IMAGING Final R esult * XR DXA BONE DENSITY 2 SITES AXIAL (07/26/2022 1:10 PM CDT) Anatomical Region Laterality Modality Spine, HIPS, HIPL, HIPR Computed Radiography 07/26/2022 1:10 PM CDT Impressions 07/26/2022 1:29 PM CDT OSTEOPOROSIS. T score meets the WHO criteria for osteoporosis at one or more measured sites. The risk of osteoporotic fracture increases approximately two-fold for each standard deviation decrease in T-score. Narrative 07/26/2022 1:29 PM CDT For Patients: As a result of the s Act, medical imaging exams and procedure reports are released immediately into your electronic medical record. You may view this report before your referring provider. If you have questions, please contact your health care provider. EXAM: XR DXA BONE DENSITY 2 SITES AXIAL LOCATION: [facility] DATE/TIME: 07/26/2022 1:10 PM CDT INDICATION: D. osteoporosis (must be documented by previous exam) - m81.0 Age- related Osteoporosis Without Current Pathological Fracture DEMOGRAPHICS: Age- 76 years. Gender- Female. Menopausal status- Postmenopausal. COMPARISON: None. TECHNIQUE: Dual-energy x-ray absorptiometry (DXA) performed with routine technique. FINDINGS: DXA RESULTS -Lumbar Spine: L1-L4: BMD: 0.983 g/cm2. T-score: -1.6. Z-score: -0.6. -RIGHT Hip Total: BMD: 0.745 g/cm2. T-score: -2.1. Z-score: -0.8. -RIGHT Hip Femoral neck: BMD: 0.679 g/cm2. T-score: -2.6. Z-score: -1.0. -LEFT Hip Total: BMD: 0.795 g/cm2. T-score: -1.7. Z-score: -0.4. -LEFT Hip Femoral neck: BMD: 0.643 g/cm2. T-score: -2.8. Z-score: -1.3. WHO T-SCORE CRITERIA -Normal: T score at or above -1 SD -Osteopenia: T score between -1 and -2.5 SD -Osteoporosis: T score at or below -2.5 SD The World Health Organization (WHO) criteria is applicable to perimenopausal females, postmenopausal females, and men aged 50 years or older. FRACTURE RISK -The FRAX risk calculator is not applicable due to osteoporosis. RECOMMENDATIONS The patient's BMD is consistent with osteoporosis, and he/she is at increased fracture risk. If not currently being treated for low BMD, this would merit treatment according to the Bone Health and Osteoporosis Foundation. Procedure Note Spencer Magaña MD - 07/26/2022 For Patients: As a result of the Century Cures Act, medical imagingexams and procedure reports are released immediately into your electronicmedical record. You may view this report before your referring provider.If you have questions, please contact your health care provider. EXAM: XR DXA BONE DENSITY 2 SITES AXIAL LOCATION: [facility] DATE/TIME: 07/26/2022 1:10 PM CDT INDICATION: D. osteoporosis (must be documented by previous exam) - m81.0Age- related Osteoporosis Without Current Pathological Fracture DEMOGRAPHICS: Age- 76 years. Gender- Female. Menopausal status-Postmenopausal. COMPARISON: None. TECHNIQUE: Dual-energy x-ray absorptiometry (DXA) performed with routinetechnique. FINDINGS: DXA RESULTS -Lumbar Spine: L1-L4: BMD: 0.983 g/cm2. T-score: -1.6. Z-score: -0.6. -RIGHT Hip Total: BMD: 0.745 g/cm2. T-score: -2.1. Z-score: -0.8. -RIGHT Hip Femoral neck: BMD: 0.679 g/cm2. T-score: -2.6. Z-score: -1.0. -LEFT Hip Total: BMD: 0.795 g/cm2. T-score: -1.7. Z-score: -0.4. -LEFT Hip Femoral neck: BMD: 0.643 g/cm2. T-score: -2.8. Z-score: -1.3. WHO T-SCORE CRITERIA -Normal: T score at or above -1 SD -Osteopenia: T score between -1 and -2.5 SD -Osteoporosis: T score at or below -2.5 SD The World Health Organization (WHO) criteria is applicable toperimenopausal females, postmenopausal females, and men aged 50 years orolder. FRACTURE RISK -The FRAX risk calculator is not applicable due to osteoporosis. RECOMMENDATIONS The patient's BMD is consistent with osteoporosis, and he/she is atincreased fracture risk. If not currently being treated for low BMD, thiswould merit treatment according to the Bone Health and OsteoporosisFoundation. IMPRESSION: OSTEOPOROSIS. T score meets the WHO criteria for osteoporosis at one ormore measured sites. The risk of osteoporotic fracture increasesapproximately two-fold for each standard deviation decrease in T-score. Zuri Sanchez MD DEXA Final Resu lt * ANTI HCV (12/20/2017 9:54 AM CDT) Pathologist [facility] HEPATITIS C ANTIBODY Non-React israel Non-React israel 12/20/2017 5:04 PM CDT [facility] Comment:Antibodies to HCV no t detected; does not exclude the possibility of exposure to HCV. Blood BLOOD SPECIMEN / Unknown Venipuncture / Unknown 12/20/2017 9:54 AM CDT 12/20/2017 9:55 AM CDT us Susan Gardner MD SEND OUTS Final R esult [facility] [address] [place] [address], from Last 3 Months or Most Recently Relevant to Health Maintenance Insurance Advance Directives Documents on File Type Date Recorded Patient Ethnoarchaeologist Expl anation Healthcare Directive 11/08/2011 1:41 PM HCD * Full Code (Latest Code Status on File) Date Activated Date Inactivated Comments 06/04/2021 1:16 AM 06/05/2021 3:39 PM Question Answer Comments Code Status Discussion: Reviewed Preferences * Full Code Date Activated Date Inactivated Comments 10/08/2020 4:17 PM 10/10/2020 2:34 PM Question Answer Comments Code Status Discussion: Not Discussed * Full Code Date Activated Date Inactivated Comments 10/08/2020 3:23 PM 10/08/2020 4:17 PM Question Answer Comments Code Status Discussion: Per Existing Order * Full Code Date Activated Date Inactivated Comments 10/08/2020 3:23 PM 10/08/2020 3:23 PM Question Answer Comments Code Status Discussion: Per Existing Order * Full Code Date Activated Date Inactivated Comments 09/14/2020 6:45 PM 09/15/2020 7:42 PM Question Answer Comments Code Status Discussion: Not Discussed Care Teams Abrading Machine Tender Relationship Specialty [place] [address] [place] [address] PCP - General Family Practice 11/09/22 Ken Land MD [address] [place] [address] Internal Medicine 07/09/14
== END 2024-06-02 13:38 | disposition home or self-care (01) ==
PROVIDERS: Emergency Provider Emergency Medicine Emergency Medical Services; PCP Student in an Organized Health Care Education/Training Program
DX: K52.9 Noninfective gastroenteritis and colitis, unspecified (principal)
CPT/HCPCS: 99283; 99284